=== PATIENT | female | born 1935 | race Caucasian/White ===

== ENCOUNTER → 2016-09-13 | Outpatient (CLI) | payer MEDICARE, OTHER ==
[~2016-09-13] MED LIST: AMLO5TAB2 PO; ASPI-557 PO; LORA-610 PO; LOSA50TA52 PO; MULT-1243 PO; OMEG1CAP52 PO; OMEP20CA10 PO; ORPH100T2 PO; TRAM50TA53 PO; [UNRECOGNIZED DRUG - CODE] PO
== END ==
LOC: IMA 10:03
PROVIDERS: ATTEND Nurse Practitioner
DX: Z78.0 Asymptomatic menopausal state (principal); Z90.710 Acquired absence of both cervix and uterus

== ENCOUNTER 2017-03-29 08:00 | Observation (INO) ==
[2017-03-29 07:55] VITALS: BMI 28.5
[2017-03-29] MEDS ORDERED: [UNRECOGNIZED DRUG - OTHER] XX SCH (08:15)
[2017-03-29] MEDS ORDERED: SALINE FLUSH 10ml SYRINGE IV PRN (08:15)
[2017-03-29] MEDS: NS 1,000 ML IV SCH ×2 (08:59→22:00)
[2017-03-29] MEDS: SOTALOL 80 MG TABLET PO SCH ×2 (09:04→16:58)
--- NOTE | 2017-03-29 09:50 | Cardiology History & Physical ---
History of Present Illness Chief complaint: PVCs HPI: Yesenia is a 81 year old female who is well known to Dr. Daigle with a history of precordial pain, with recent stable stress test and echo, PVCs, Nonrheumatic tricuspid regurgitation, HTN, HLD and TIA. She is being admitted to observation under the care of Dr. Daigle for antiarrhythmic therapy on Sotalol. Review of Systems - Constitutional Constitutional: Absent: chills, fatigue, fever(s) - EENMT Eyes: Absent: change in vision Balance: Absent: vertigo Mouth/Throat: Absent: sore throat - Cardiovascular Cardiovascular: Absent: chest pain, palpitations, syncope, dyspnea on exertion, orthopnea, heart murmur Vascular: Absent: pedal edema - Respiratory Respiratory: Absent: cough, dyspnea - Gastrointestinal Gastrointestinal: Absent: abdominal pain, diarrhea, melena, vomiting - Genitourinary Genitourinary: Absent: dysuria - Integumentary/Breasts Integumentary: Absent: rash - Neurological Neurological: Absent: dizziness - Endocrine Endocrine: Absent: palpitations PFSH Patient Stated Medical History Transient Ischemic Attacks ( Yes: 2002 TIA) Cataracts Yes: bilateral-removed Cardiac Arrhythmia Yes Hypertension Yes Valvular Heart Disease Yes: mitral valve prolapse Gastroesophageal Reflux Yes Disease Hx Urinary Tract Infection Yes Clinic Medical History (Last Updated 02/25/17 @ 12:18 by Tiffanie Gottlieb APRN) Family history of melanoma (Chronic Medical) History of TIA (transient ischemic attack) (Chronic Medical) 01/2003 with increased stress Anxiety (Chronic Medical) Mitral valve prolapse (Chronic Medical) Hypercholesteremia (Chronic Medical) HTN (hypertension) (Chronic Medical) Surgical History: -SHAHRAM NEWTON (1976) for bleeding. -Left knee arthroscopy (05/22 ) lateral meniscus tear, chondromalacia of the patellar-femoral joint. - bilateral cataract excision 08/2015, 09/2015. - Family History: Family History (Last Reviewed 12/02/16 @ 12:59 by GISELLE Corrales) Father , age 75 Melanoma Mother , age 93, likely multi-infarct Dementia Paternal Grandmother , early 80's CVA (cerebral vascular accident) Sister , age 76 Multiple myeloma Daughter , age 43 Breast cancer - Social History Smoking status: Never smoker Substance use type: does not use Alcohol intake frequency: does not drink Household members: spouse Current occupational status: retired Current residence: Apartment/Private Home Medications Home Medications Medication Instructions Recorded Confirmed Type ALPRAZolam [Alprazolam Odt] 0.5 - 1 tab PO TID PRN #0 08/15/14 03/29/17 History Aspirin [Aspir 81] 1 tab PO HS #0 tab 08/15/14 03/29/17 History Losartan Potassium 25 mg PO BID #0 tab 08/15/14 03/29/17 History Multivit-Min/FA/Lycopen/Lutein 1 tab PO DAILY #0 08/15/14 03/29/17 History [Centrum Silver Tablet] [place]-3S/Dha/Epa/Fish Oil [Fish 2 cap PO DAILY #0 08/15/14 03/29/17 History Oil EC 1,200 mg Softgel] Flonase (Fluticasone) 50 mcg nasal 2 spray INTRANASAL DAILY g 12/02/16 History spray Zoloft (sertraline) 50 mg tablet 50 mg PO DAILY 90 Days #135 12/02/16 03/29/17 History Calcium Carbonate [Calcium] 500 mg PO DAILY 02/03/17 03/29/17 History Cetirizine [Zyrtec] 10 mg PO DAILY 02/03/17 03/29/17 History ALPRAZolam [Xanax] 0.125 mg PO TID PRN 03/29/17 03/29/17 History Allergies Allergy/AdvReac Type Severity Reaction Status Date / Time erythromycin base Allergy Unknown Difficulty Verified 03/29/17 08:16 Breathing hydrocodone Allergy Unknown Fainting Verified 03/29/17 08:16 Kkfiiaq-Fcq-Tay Reductase Allergy Weakness Verified 03/29/17 08:16 Inhibitor Exam Vital signs: Temperature 95.6 F L 03/29/17 07:55 Pulse Rate 70 03/29/17 09:04 Respiratory Rate 17 03/29/17 07:55 Blood Pressure 138/66 03/29/17 07:55 Pulse Oximetry 97 03/29/17 07:55 - Constitutional no acute distress, cooperative - Routine HEENT Exam Head: Present: normocephalic ENT: Present: mucous membranes moist - Routine Neck Exam Absent: JVD, carotid bruit - Routine Chest/Breast/Axilla Exam Chest wall: Absent: tenderness - Routine Respiratory Exam Present: CTA bilaterally. Absent: rales, wheezes - Routine Cardiovascular Exam Present: irregular rhythm. Absent: JVD - Routine Abdominal Exam Present: soft, normoactive bowel sounds - Routine Extremities Exam Present: no edema - Routine Skin Exam Present: intact, dry, warm - Routine Neurological Exam Present: alert, oriented X3 - Routine Psychiatric Exam Present: normal affect, normal thought process Results 03/29/17 08:38 03/30/17 04:08 Cardiac Enzymes 03/29/17 Range/Units 08:38 AST 18 (14-36) U/L CBC 03/29/17 Range/Units 08:38 WBC 4.7 (4.5-11.0) T/MM3 RBC 4.06 (4.00-5.20) M/MM3 Hgb 12.6 (12-16) GM/DL Hct 39.5 (36-46) % Plt Count 218 (130-400) T/MM3 Neut # (Auto) 2.4 (1.8-7.7) T/MM3 Lymph # (Auto) 1.6 (1-4.8) T/MM3 [place] # (Auto) 0.4 (0-0.8) T/MM3 Eos # (Auto) 0.2 (0-0.5) T/MM3 Baso # (Auto) 0.1 (0-0.2) T/MM3 Comprehensive Metabolic Panel 03/29/17 Range/Units 08:38 Sodium 145 H (134-144) MEQ/L Potassium 4.3 (3.6-5) MEQ/L Chloride 109 H (98-107) MEQ/L Carbon Dioxide 28 (22-30) MEQ/L BUN 20.0 H (7-17) MG/DL Creatinine 1.3 H (0.7-1.2) MG/DL Glucose 79 (65-110) MG/DL Calcium 10.5 H (8.4-10.2) MG/DL AST 18 (14-36) U/L ALT 30 (9-52) U/L Alkaline Phosphatase 50 (38-126) U/L Total Protein 7.1 (6.3-8.2) G/DL Albumin 3.8 (3.5-5.0) G/DL Intake and Output 03/28/17 03/29/17 03/29/17 22:59 06:59 14:59 Other: Weight 171 lb 4.787 oz Patient Weight 03/30/17 06:59 Weight 171 lb 4.787 oz - Imaging and Cardiology EKG results: image reviewed - EKG Interpretation EKG: sinus rhythm EKG interpretations - EKG EKG results cardiology: sinus rhythm Hospital Course This is a general summary of the patient's hospital course. For more details refer to the complete medical record. Time spent with patient: 25 - 35 minutes DVT Prophylaxis: Lovenox Assessment and Plan - Attestation Attestation Narrative: 03/30/17 12:21 Recommendation After examining the patient I agree with the above assessment. I am involved in the formulation of the patient's plan of care. - Assessment and Plan (1) Ventricular premature depolarization Status: Acute antiarrhythmic therapy on Sotalol. (2) Non-rheumatic tricuspid valve insufficiency Status: Acute routine monitoring (3) History of TIA (transient ischemic attack) Problem details: 01/2003 with increased stress Status: Chronic (4) HTN (hypertension) Status: Chronic well controlled on current therapy, continue current therapy (5) Hypercholesteremia Status: Chronic PCP manages
[2017-03-29] MEDS ORDERED: INFLUENZA VAC High Dose 2017-18 (Fluzone HD*) (>=65yo) 0.5ml IM ONE (14:31)
[2017-03-29] MEDS ORDERED: PNEUMOCOCCAL 13 VACCINE 0.5ml INJECTION IM ONE (14:31)
[2017-03-29] MEDS ORDERED: PNEUMOCOCCAL VAC ADMIN CHARGE INJ ONE (15:00)
[2017-03-29] MEDS ORDERED: INFLUENZA VAC. INJ. ADMIN CHARGE INJ ONE (15:00)
[2017-03-30] MEDS: SOTALOL 80 MG TABLET PO SCH (07:17)
[2017-03-30 07:36] VITALS: BP 148/69; PULSE 53; RESP 18; TEMP 96.4; O2SAT 94
[2017-03-30] MEDS ORDERED: OMEPRAZOLE 20 MG CAP - PT OWN PO SCH (09:00)
[2017-03-30] MEDS ORDERED: FISH OIL PO SCH (09:00)
[2017-03-30] MEDS ORDERED: AMLODIPINE 5 MG TAB - PT OWN PO SCH (09:00)
[2017-03-30] MEDS ORDERED: MULTI VITAMIN PLAIN PO SCH (09:00)
[2017-03-30] MEDS ORDERED: ASPIRIN *EC* 81 MG TAB - PT OWN PO SCH (09:00)
[2017-03-30] MEDS ORDERED: OMEGA-3 ACID ESTERS 1 GM CAPSULE PO SCH (09:00)
[2017-03-30] MEDS ORDERED: LOSARTAN 50 MG PO SCH (09:00)
[2017-03-30] MEDS ORDERED: SERTRALINE 50 MG PO SCH (09:00)
--- NOTE | 2017-03-30 10:11 | Discharge Summary ---
<Zena Lambert - Last Filed: 03/30/17 10:20> Discharge Information Date of admission: 03/29/17 07:39 Anticipated date of discharge: 03/30/17 Attending Physician: Dino Daigle MD Primary care physician: Tiffanie Gottlieb, TELEPHONE TRIAGE NURSE - Discharge Diagnosis (1) Ventricular premature depolarization Status: Acute (2) Non-rheumatic tricuspid valve insufficiency Status: Acute (3) History of TIA (transient ischemic attack) Status: Chronic (4) HTN (hypertension) Status: Chronic (5) Hypercholesteremia Status: Chronic - Laboratory Labs: 03/29/17 08:38 03/30/17 04:08 Laboratory Results - last 48 hr 03/29/17 03/29/17 03/29/17 08:37 08:38 08:38 WBC 4.7 RBC 4.06 Hgb 12.6 Hct 39.5 MCV 97.3 MCH 31.0 MCHC 31.9 RDW Std Deviation 45.9 Plt Count 218 MPV 10.3 Immature Gran % (Auto) 0.2 Neut % (Auto) 51.1 Lymph % (Auto) 34.6 [place] % (Auto) 8.6 Eos % (Auto) 3.8 Baso % (Auto) 1.7 Neut # (Auto) 2.4 Lymph # (Auto) 1.6 [place] # (Auto) 0.4 Eos # (Auto) 0.2 Baso # (Auto) 0.1 Abs Immat Gran (auto) 0.01 Turbidity < 20 Sodium 145 H Potassium 4.3 Chloride 109 H Carbon Dioxide 28 Anion Gap 8 BUN 20.0 H Creatinine 1.3 H GFR Calculation 39 BUN/Creatinine Ratio 15 Glucose 79 Calculated Osmolality 281 H Calcium 10.5 H Magnesium 2.0 Total Bilirubin 0.50 Icterus Index < 2 AST 18 ALT 30 Alkaline Phosphatase 50 Total Protein 7.1 Albumin 3.8 Globulin 3.3 Albumin/Globulin Ratio 1.2 TSH 1.01 Free T4 0.99 Specimen Hemolysis < 15 03/30/17 04:08 WBC RBC Hgb Hct MCV MCH MCHC RDW Std Deviation Plt Count MPV Immature Gran % (Auto) Neut % (Auto) Lymph % (Auto) [place] % (Auto) Eos % (Auto) Baso % (Auto) Neut # (Auto) Lymph # (Auto) [place] # (Auto) Eos # (Auto) Baso # (Auto) Abs Immat Gran (auto) Turbidity < 20 Sodium 145 H Potassium 4.3 Chloride 111 H Carbon Dioxide 27 Anion Gap 7 BUN 20.0 H Creatinine 1.2 GFR Calculation 43 BUN/Creatinine Ratio 17 Glucose 87 Calculated Osmolality 281 H Calcium 9.9 Magnesium 2.0 Total Bilirubin Icterus Index < 2 AST ALT Alkaline Phosphatase Total Protein Albumin Globulin Albumin/Globulin Ratio TSH Free T4 Specimen Hemolysis < 15 History of Present Illness HPI: Yesenia is a 81 year old female who is well known to Dr. Daigle with a history of precordial pain, with recent stable stress test and echo, PVCs, Nonrheumatic tricuspid regurgitation, HTN, HLD and TIA. She is being admitted to observation under the care of Dr. Daigle for antiarrhythmic therapy on Sotalol. Hospital Course This is a general summary of the patient's hospital course. For more details refer to the complete medical record. Hospital course: Started on Sotalol 40mg BID. Resolved PVCs and slowed HR into the 50s but patient is asymptomatic. will continue and discharge to home. with follow up with Dr. Daigle Exam Vital signs: Temperature 96.4 F L 03/30/17 07:34 Pulse Rate 53 L 03/30/17 07:34 Respiratory Rate 18 03/30/17 07:34 Blood Pressure 148/69 H 03/30/17 07:34 Pulse Oximetry 94 03/30/17 07:34 - Constitutional no acute distress, cooperative - Routine HEENT Exam Head: Present: normocephalic ENT: Present: mucous membranes moist - Routine Neck Exam Absent: JVD, carotid bruit - Routine Chest/Breast/Axilla Exam Chest wall: Absent: tenderness - Routine Respiratory Exam Present: CTA bilaterally. Absent: rales, wheezes - Routine Cardiovascular Exam Present: RRR, no murmur, bradycardia. Absent: JVD - Routine Abdominal Exam Present: soft, normoactive bowel sounds - Routine Extremities Exam Present: no edema - Routine Skin Exam Present: intact, dry, warm - Routine Neurological Exam Present: alert, oriented X3 - Routine Psychiatric Exam Present: normal affect, normal thought process Results 03/29/17 08:38 03/30/17 04:08 Comprehensive Metabolic Panel 03/30/17 Range/Units 04:08 Sodium 145 H (134-144) MEQ/L Potassium 4.3 (3.6-5) MEQ/L Chloride 111 H (98-107) MEQ/L Carbon Dioxide 27 (22-30) MEQ/L BUN 20.0 H (7-17) MG/DL Creatinine 1.2 (0.7-1.2) MG/DL Glucose 87 (65-110) MG/DL Calcium 9.9 (8.4-10.2) MG/DL Intake and Output 03/29/17 03/30/17 03/30/17 22:59 06:59 14:59 Intake Total 1816.25 / 1816.25 100 / 100 Output Total 900 / 900 Balance 1816.25 / 1816.25 -800 / -800 Intake: IV 976.25 / 976.25 Ns 1,000 ml @ 75 mls/hr 976.25 / 976.25 IV .[id number] JOANIE Rx#: [id number] Oral 840 / 840 100 / 100 Output: Urine 900 / 900 Other: Urine Appearance Clear Urine Color Yellow Urine Odor Normal Weight 174 lb 13.225 oz Patient Weight 03/31/17 06:59 Weight 174 lb 13.225 oz - Imaging and Cardiology EKG results: image reviewed - EKG Interpretation EKG shows: bradycardia, sinus rhythm Discharge Plan - Med Rec/Dispo Referrals/Follow Up: Dino Daigle MD [Physician] - 05/04/17 10:50 am (05/04/17 at 10:50am) Prescriptions: New Sotalol [Betapace] 40 mg PO ACBID #30 tab Continue ALPRAZolam [Alprazolam Odt] 0.5 - 1 tab PO TID PRN #0 PRN Reason: ANXIETY Aspirin [Aspir 81] 1 tab PO HS #0 tab Cetirizine [Zyrtec] 10 mg PO DAILY Multivit-Min/FA/Lycopen/Lutein [Centrum Silver Tablet] 1 tab PO DAILY #0 [place]-3S/Dha/Epa/Fish Oil [Fish Oil EC 1,200 mg Softgel] 2 cap PO DAILY #0 Losartan Potassium 25 mg PO BID #0 tab Calcium Carbonate [Calcium] 500 mg PO DAILY ALPRAZolam [Xanax] 0.125 mg PO TID PRN PRN Reason: anxiety Norvasc (amlodipine) 5 mg tablet 5 mg PO DAILY #90 tab Prilosec (Omeprazole) 20 mg capsule,delayed release 20 mg PO DAILY #90 - Disposition 01 Discharged Home, Self-Care <Dino Daigle - Last Filed: 03/31/17 17:53> Discharge Information Date of admission: 03/29/17 07:39 Attending Physician: Dino Daigle MD Primary care physician: Tiffanie Gottlieb, TELEPHONE TRIAGE NURSE - Discharge Diagnosis (1) Ventricular premature depolarization Status: Acute (2) Non-rheumatic tricuspid valve insufficiency Status: Acute (3) History of TIA (transient ischemic attack) Status: Chronic (4) HTN (hypertension) Status: Chronic (5) Hypercholesteremia Status: Chronic - Laboratory Labs: 03/29/17 08:38 03/30/17 04:08 Hospital Course This is a general summary of the patient's hospital course. For more details refer to the complete medical record. Exam Vital signs: Temperature 96.4 F L 03/30/17 07:34 Pulse Rate 53 L 03/30/17 07:34 Respiratory Rate 18 03/30/17 07:34 Blood Pressure 148/69 H 03/30/17 07:34 Pulse Oximetry 94 03/30/17 07:34 Results 03/29/17 08:38 03/30/17 04:08 Discharge Plan - Med Rec/Dispo - Attestation Attestation Narrative: 03/31/17 17:53 Recommendation After examining the patient I agree with the above assessment. I am involved in the formulation of the patient's plan of care.
== END 2017-03-30 10:00 | disposition home or self-care (01) ==
LOC: MED
PROVIDERS: ADMIT Internal Medicine Cardiovascular Disease; ATTEND Internal Medicine Cardiovascular Disease

== ENCOUNTER 2017-06-21 08:00 | Observation (INO) ==
--- NOTE | 2017-06-21 08:07 | Cardiology History & Physical ---
History of Present Illness Chief complaint: PVCs HPI: Yesenia is a 81 year old female who is known to Dr. Daigle with a history of nonrheumatic tricuspid regurgitation, HTN, HLD, TIA and had a recent holter which showed SR, SB, ST, HR 55-100s, frequent PVCs, bigeminy, trigeminy, rare PACS. She is being admitted to observation for monitoring while initiating antiarrhythmic therapy on Flecainide Review of Systems - Constitutional Constitutional: Absent: chills, fatigue, fever(s) - EENMT Eyes: Absent: change in vision Balance: Absent: vertigo Mouth/Throat: Absent: sore throat - Cardiovascular Cardiovascular: Absent: chest pain, palpitations, syncope, dyspnea on exertion Vascular: Absent: pedal edema - Respiratory Respiratory: Present: cough (at night sometimes) - Gastrointestinal Gastrointestinal: Absent: abdominal pain, diarrhea, nausea, vomiting - Genitourinary Genitourinary: Absent: dysuria - Integumentary/Breasts Integumentary: Absent: rash - Neurological Neurological: Absent: dizziness - Endocrine Endocrine: Absent: palpitations PFSH Patient Stated Medical History Transient Ischemic Attacks ( Yes: 2002 TIA) Cataracts Yes: bilateral-removed Cardiac Arrhythmia Yes Hypertension Yes Valvular Heart Disease Yes: mitral valve prolapse Gastroesophageal Reflux Yes Disease Hx Urinary Tract Infection Yes [facility] Medical History (Last Updated 02/25/17 @ 12:18 by Tiffanie Gottlieb APRN) Family history of melanoma (Chronic Medical) History of TIA (transient ischemic attack) (Chronic Medical) 01/2003 with increased stress Anxiety (Chronic Medical) Mitral valve prolapse (Chronic Medical) Hypercholesteremia (Chronic Medical) HTN (hypertension) (Chronic Medical) Surgical History: -LAMAR, BSO (1976) for bleeding. -Left knee arthroscopy (05/22 ) lateral meniscus tear, chondromalacia of the patellar-femoral joint. - bilateral cataract excision 08/2015, 09/2015. - Family History: Family History (Last Reviewed 12/02/16 @ 12:59 by GISELLE Corrales) Father , age 75 Melanoma Mother , age 93, likely multi-infarct Dementia Paternal Grandmother , early 80's CVA (cerebral vascular accident) Sister , age 76 Multiple myeloma Daughter , age 43 Breast cancer - Social History Smoking status: Never smoker Substance use type: does not use Alcohol intake frequency: does not drink Household members: spouse Current residence: Apartment/Private Home Medications Home Medications Medication Instructions Recorded Confirmed Type Aspirin [Aspir 81] 1 tab PO HS #0 tab 08/15/14 06/21/17 History Losartan Potassium 25 mg PO BID #0 tab 08/15/14 06/21/17 History Multivit-Min/FA/Lycopen/Lutein 1 tab PO DAILY #0 08/15/14 06/21/17 History [Centrum Silver Tablet] [place]-3S/Dha/Epa/Fish Oil [Fish 2 cap PO DAILY #0 08/15/14 06/21/17 History Oil EC 1,200 mg Softgel] Flonase (Fluticasone) 50 mcg nasal 2 spray INTRANASAL PRN PRN g 12/02/16 History spray Zoloft (sertraline) 50 mg tablet 50 mg PO DAILY 90 Days #135 12/02/16 06/21/17 History Calcium Carbonate [Calcium] 500 mg PO DAILY 02/03/17 06/21/17 History Cetirizine [Zyrtec] 10 mg PO PRN PRN 02/03/17 06/21/17 History ALPRAZolam [Xanax] 0.125 mg PO TID PRN 03/29/17 06/21/17 History Allergies Allergy/AdvReac Type Severity Reaction Status Date / Time erythromycin base Allergy Unknown Difficulty Verified 06/21/17 10:59 Breathing hydrocodone Allergy Unknown Fainting Verified 06/21/17 10:59 Iwhophw-Tiw-Hmc Reductase Allergy Weakness Verified 06/21/17 10:59 Inhibitor Exam - Constitutional no acute distress, well nourished, cooperative - Routine HEENT Exam Head: Present: normocephalic ENT: Present: mucous membranes moist - Routine Neck Exam Absent: JVD, carotid bruit - Routine Chest/Breast/Axilla Exam Chest wall: Absent: tenderness - Routine Respiratory Exam Present: CTA bilaterally. Absent: rales, wheezes - Routine Cardiovascular Exam Present: no murmur, irregular rhythm. Absent: JVD - Routine Abdominal Exam Present: soft, normoactive bowel sounds - Routine Extremities Exam Present: no edema - Routine Skin Exam Present: intact, dry, warm - Routine Neurological Exam Present: alert, oriented X3 - Routine Psychiatric Exam Present: normal affect, normal thought process Results 06/21/17 09:20 06/22/17 04:07 Abnormal Lab Results 06/21/17 06/21/17 09:20 09:20 WBC 6.1 RBC 4.27 Hgb 13.0 Hct 40.9 MCV 95.8 MCH 30.4 MCHC 31.8 RDW Std Deviation 44.0 Plt Count 238 MPV 10.3 Immature Gran % (Auto) 0.2 Neut % (Auto) 58.3 Lymph % (Auto) 30.6 [place] % (Auto) 6.8 Eos % (Auto) 3.1 Baso % (Auto) 1.0 Neut # (Auto) 3.6 Lymph # (Auto) 1.9 [place] # (Auto) 0.4 Eos # (Auto) 0.2 Baso # (Auto) 0.1 Abs Immat Gran (auto) 0.01 Turbidity < 20 Sodium 142 Potassium 4.3 Chloride 106 Carbon Dioxide 27 Anion Gap 9 BUN 25.0 H Creatinine 1.1 GFR Calculation 48 BUN/Creatinine Ratio 23 Glucose 79 Calculated Osmolality 276 Calcium 10.5 H Magnesium 2.1 Total Bilirubin 0.30 Conjugated Bilirubin 0.00 Unconjugated Bilirubin 0.10 Icterus Index < 2 AST 17 ALT 20 Alkaline Phosphatase 58 Total Protein 7.4 Albumin 4.2 Globulin 3.2 Albumin/Globulin Ratio 1.3 TSH 0.39 L Specimen Hemolysis < 15 EKG interpretations - EKG EKG results cardiology: sinus rhythm - Dysrhythmias Ventricular dysrhythmias: ventricular premature complexes - PA, pacemaker, normal Myocardial infarction: inferior PA (old age indeterminate) Hospital Course This is a general summary of the patient's hospital course. For more details refer to the complete medical record. Time spent with patient: 25 - 35 minutes Assessment and Plan - Attestation Attestation Narrative: 06/27/17 14:46 Recommendation After examining the patient I agree with the above assessment. I am involved in the formulation of the patient's plan of care. - Assessment and Plan (1) Ventricular premature depolarization Status: Chronic She is being admitted to observation for monitoring while initiating antiarrhythmic therapy on Flecainide. - Mag and TSH collected - Repeat EKG in am - monitor cardiac telemetry (2) Non-rheumatic tricuspid valve insufficiency Status: Chronic (3) History of TIA (transient ischemic attack) Problem details: 01/2003 with increased stress Status: Chronic (4) Hypercholesteremia Status: Chronic (5) HTN (hypertension) Status: Chronic
[2017-06-21 08:20] VITALS: BMI 28.0
[2017-06-21] MEDS ORDERED: FLECAINIDE 100 MG TABLET PO SCH (10:39)
[2017-06-21] MEDS: FLECAINIDE 50 MG TABLET PO SCH ×2 (10:56→21:42)
[2017-06-21] MEDS ORDERED: ALPRAZolam 0.25 MG TABLET PO PRN (11:25)
[2017-06-21] MEDS ORDERED: CETIRIZINE 10 MG TABLET PO PRN (11:25)
[2017-06-21] MEDS: LOSARTAN 50 MG TABLET PO SCH (17:54)
[2017-06-21] MEDS ORDERED: ASPIRIN *EC* 81 MG TABLET PO SCH (21:00)
[2017-06-21] MEDS ORDERED: LOSARTAN 50 MG TABLET PO SCH (21:00)
[2017-06-21 23:55] VITALS: RESP 16
[2017-06-22 07:46] VITALS: BP 152/71; PULSE 59; TEMP 97.3; O2SAT 96
[2017-06-22] MEDS: FLECAINIDE 50 MG TABLET PO SCH (08:30)
[2017-06-22] MEDS: LOSARTAN 50 MG TABLET PO SCH (08:31)
[2017-06-22] MEDS ORDERED: CALCIUM CARBONATE 500 MG TABLET PO SCH (09:00)
[2017-06-22] MEDS ORDERED: OMEGA-3 ACID ESTERS 1 GM CAPSULE PO SCH (09:00)
[2017-06-22] MEDS ORDERED: AMLODIPINE 5 MG TABLET PO SCH (09:00)
[2017-06-22] MEDS ORDERED: OMEPRAZOLE 20 MG CAPSULE PO SCH (09:00)
[2017-06-22] MEDS ORDERED: MULTI-VIT + MINERAL (Opti-gen) TABLET PO SCH (09:00)
== END 2017-06-22 10:46 | disposition home or self-care (01) ==
LOC: SRG → EDSTATUS 08:00
PROVIDERS: ADMIT Internal Medicine Cardiovascular Disease; ATTEND Internal Medicine Cardiovascular Disease